=== PATIENT | female | born 1955 | race Caucasian/White ===

== ENCOUNTER 2020-04-12 19:59 | Observation (INO) ==
[2020-04-12] MEDS ORDERED: IOPAMIDOL 100 ML BOTTLE IV ONE (20:00)
[2020-04-12] MEDS ORDERED: LACTATED RINGERS 1,000 ML IV SCH (20:15)
--- NOTE | 2020-04-12 20:19 | Emergency Department Note ---
Neuro HPI - General Chief Complaint: Stroke Symptoms Stated Complaint: nuero symptoms Time Seen by Provider: 04/12/20 20:05 Source: patient, family Mode of arrival: ambulatory - History of Present Illness HPI Narrative: Short time ago developed tingling and numbness to the right side of face as well as some paresthesias to the right arm. She was sitting at the table with her h usband when she noticed blurriness on the right eye and also started developing some tingling to the right side of face which proceeded to go up to the ear and then down towards the right arm. She denies any right arm weakness, denies any leg weakness, but she had loss of depth perception. Was brought in immediately by private vehicle. Started 40 minutes prior to arrival. Did have slight press ure headache earlier, a little bit of nausea but no vomiting. No chest pain, shortness of breath. The. Positive history of cardiac disease on her brother's side, parents side - Related Data Home Medications: Home Medications Medication Instructions Recorded Confirmed magnesium oxide 400 mg PO QDAY cap 12/06/17 04/12/20 cholecalciferol (vitamin D3) 25 2,000 unit PO QDAY cap 03/14/18 04/12/20 mcg (1,000 unit) capsule Previous Rx's Medication Instructions Recorded fluoxetine 20 mg capsule 20 mg PO QDAY #90 cap 08/03/19 losartan 100 mg tablet 50 mg PO QDAY #45 tab 08/03/19 metformin 500 mg tablet See Rx Instructions PO .COMPLEX 90 09/09/19 Days #450 tab Allergies/Adverse Reactions: Allergies Allergy/AdvReac Type Severity Reaction Status Date / Time Verapamil [From Isoptin] AdvReac Mild Headache Verified 04/12/20 20:04 Review of Systems All systems ED: reviewed and negative except as stated. Constitutional: Denies: fever, chills Eyes: Denies: eye pain ENT ED: Denies: throat pain Cardiovascular: Denies: chest pain, palpitations Respiratory: Denies: shortness of breath, cough, wheezes, phlegm Gastrointestinal: Denies: abdominal pain, nausea, vomiting Genitourinary: Denies: dysuria, urgency Musculoskeletal: Denies: back pain Neurological: Reports: headache, paresthesias. Denies: confusion Endocrine: Denies: fatigue Past Medical History - Past Medical History [facility] Narrative: All Active Problems (Last Reviewed 07/08/18 @ 15:51 by Blank Ellis MD) Thumb pain (Acute) Shoulder fracture, right (Chronic) S/P LASIK surgery of both eyes (Chronic) Patella fracture (Chronic) Shingles (Chronic) UTI (urinary tract infection) (Chronic) Pes anserine bursitis (Acute) Arthralgia (Chronic) Pain in both feet (Chronic) Encounter for long-term current use of other high-risk medications (Chronic) Systemic Lupus Erythematosus (Chronic) Cough (Chronic) Rash (Chronic) Long-term use of immunosuppressant medication (Chronic) Encounter for long-term (current) use of other high-risk medications (Acute) Disorder of connective tissue (Chronic) Antinuclear factor positive (Chronic) Arthralgia of multiple joints (Acute) History of (Chronic) History of cholecystectomy (Chronic) History of mammogram (Chronic) History of Papanicolaou smear of cervix (Chronic) History of colonoscopy (Chronic ~1994) IBS (irritable bowel syndrome) (Chronic) No significant past surgical history (Chronic) Thyroid nodule (Chronic) Hypothyroid (Chronic) Arthralgia (Chronic) Postmenopausal status (Chronic) Past Surgical History (Last Reviewed 07/08/18 @ 15:51 by Blank Ellis MD) S/P LASIK surgery of both eyes (Chronic) History of (Chronic) History of cholecystectomy (Chronic) History of colonoscopy (Chronic ~1994) No significant past surgical history (Chronic) S/P knee surgery (Acute) Source: old records reviewed, nursing notes reviewed Medical history: Reports: atrial fibrillation, hypertension 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 Absent: co njunctival injection, periorbital swelling, periorbital tenderness ENT: Present: normal exam, normal oropharynx, mucous membranes moist, TM's normal bilaterally Neck: Present: normal inspection, full ROM, trachea midline Chest: Present: normal inspection, symmetric chest wall rise Respiratory: Present: normal lung sounds bilaterally. Absent: respiratory distress Cardiovascular: Present: regular rate, normal rhythm, normal heart sounds Abdominal: Present: soft, normal bowel sounds. Absent: distention, tenderness, guarding Extremities: Present: normal inspection, full ROM. Absent: tenderness, pedal edema, pretibial edema Back: Absent: CVA tenderness (R), CVA tenderness (L), paraspinal tenderness, vertebral tenderness Neurological: Present: alert, oriented X3, CN II-XII intact Psychiatric: Present: normal affect, normal mood, depressed. Absent: flat affect Skin: Present: warm, dry, normal color Course - Reevaluation(s) Reevaluation #1: Spoke with the stroke neurology team out of Dr. Ayla Soliz and he recommended aspirin 325 as well as Plavix 75, stroke workup in the hospital. Aspirin and Plavix. Provided her head CT is normal. I do not see any acute hemorrhage. At this time and she may have some calcifications of the posterior cerebral vein, final reading is still pending at this time. Reevaluation #2: I spoke with Dr. Peng regarding hospital admission. The. Initial consultation was with Dr. Aguila, [facility] neurology team who did recommend observation and in-hospital workup for TIA/stroke including echocardiogram and MR imaging. We did order CT angiogram for Mrs. Tejada and if these studies are negative for acute clot, we will be able to watch her here in the hospital and work her up for stroke/TIA symptoms. The. Patient was given aspirin and Plavix given that her head CT was negative and this was per recommendations from neurology. Reevaluation #3: Patient admitted to this facility after a negative CTA of head and neck. Her neuro checks remained stable. She did not develop any further deficits. She was monitored closely. Blood pressure remained between 160 and 170 systolic. She was given aspirin and Plavix. Vital Signs Temperature 97.1 F 04/12/20 20:00 Pulse Rate 80 04/12/20 20:00 Respiratory Rate 18 04/12/20 20:00 Blood Pressure 213/101 04/12/20 20:00 Pulse Oximetry (%) 95 04/12/20 20:00 Temperature 97.2 F 04/13/20 04:00 Pulse Rate 72 04/13/20 04:00 Respiratory Rate 20 04/13/20 04:00 Blood Pressure 159/87 04/13/20 05:00 Pulse Oximetry (%) 97 04/13/20 04:00 Neuro Symptoms/Deficit - MDM Narrative Medical decision making narrative: Impression is TIA - Lab Data Lab results reviewed: Yes I reviewed the patient's lab results. Result diagrams: 04/12/20 20:15 04/12/20 20:15 Lab Results 04/12/20 04/12/20 04/12/20 Range/Units 20:15 20:15 20:15 WBC 5.6 (4.50-11.00) K/mcL RBC 4.48 (3.59-5.38) M/mcL Hgb 12.7 (11.2-15.7) g/dL Hct 37.9 (34.1-44.9) % POC Hct 37.0 (36.0-48.0) % MCV 84.6 (80.0-100.0) fL MCH 28.3 (26.0-34.0) pg MCHC 33.5 (31.0-36.0) g/dL RDW 13.0 (11.5-14.5) % Plt Count 169 (140-440) K/mcL MPV 10.2 (7.4-10.4) fL Gran % 47.2 (38.0-78.0) % Lymph % (Auto) 41.2 (15.5-49.0) % [place] % (Auto) 8.0 (1.0-12.0) % Eos % (Auto) 2.7 (0.0-7.0) % Baso % (Auto) 0.9 (0.0-2.0) % Gran # 2.65 (1.80-8.00) K/mcL Lymph # (Auto) 2.31 (1.50-4.80) K/mcL [place] # (Auto) 0.45 (0.10-0.90) K/mcL Eos # (Auto) 0.15 (0.00-0.70) K/mcL Baso # (Auto) 0.05 (0.00-0.30) K/mcL POC PT 11.4 L (11.9-14.5) sec POC INR 1.0 (0.9-1.2) APTT 31 (20-37) sec POC Sodium 136 (133-145) mmol/L Sodium 136 (133-145) mmol/L POC Potassium 3.9 (3.3-5.1) mmol/L Potassium 3.9 (3.3-5.1) mmol/L POC Chloride 97 (96-108) mmol/L Chloride 96 (96-108) mmol/L Carbon Dioxide 25 (22-30) mmol/L POC Total CO2 27 (22-30) mmol/L Anion Gap 15.0 (8-16) POC BUN 16 (8-23) mg/dl BUN 14 (8-23) mg/dl Creatinine 0.7 (0.6-1.1) mg/dl POC Creatinine 0.7 (0.6-1.1) mg/dl GFR Calculation 91 Glucose 246 H (70-105) mg/dL POC Glucose 246 H (70-105) mg/dL Hemoglobin A1c (4.0-6.0) % HGB Estim Average Glucose mg/dL Calcium 9.7 (8.6-10.4) mg/dl POC WB Ioniz Calcium 1.10 L (1.16-1.32) mmol/L Total Bilirubin 0.3 (0.0-1.0) mg/dL AST 29 (0-37) U/l ALT 38 (0-40) U/l Alkaline Phosphatase 63 (39-117) U/L Troponin T (0-0.03) ng/ml Total Protein 7.3 (5.9-8.4) gm/dL Albumin 4.6 (3.2-5.2) gm/dL Globulin 2.7 (2.2-3.7) gm/dL Albumin/Globulin Ratio 1.7 (1.0-2.3) Urine Color Urine Appearance Urine pH (5.0-9.0) Ur Specific [place] (1.000-1.035) Urine Protein (NEG) mg/dL Urine Glucose (UA) (NEG) mg/dL Urine Ketones (NEG) mg/dL Urine Occult Blood (<0.03) mg/dL Urine Nitrate (NEG) Urine Bilirubin (NEG) mg/dL Urine Urobilinogen (NEG) mg/dL Ur Leukocyte Esterase (NEG) /uL Urine RBC (0-1) /hpf Urine WBC (0-4) /hpf Ur Squamous Epith Cells (0-4) /hpf Ur Transition Epith Cell (0-2) /hpf Urine Bacteria (0) /hpf Ur Culture Indicated? 04/12/20 04/12/20 04/12/20 Range/Units 20:15 20:15 22:45 WBC (4.50-11.00) K/mcL RBC (3.59-5.38) M/mcL Hgb (11.2-15.7) g/dL Hct (34.1-44.9) % POC Hct (36.0-48.0) % MCV (80.0-100.0) fL MCH (26.0-34.0) pg MCHC (31.0-36.0) g/dL RDW (11.5-14.5) % Plt Count (140-440) K/mcL MPV (7.4-10.4) fL Gran % (38.0-78.0) % Lymph % (Auto) (15.5-49.0) % [place] % (Auto) (1.0-12.0) % Eos % (Auto) (0.0-7.0) % Baso % (Auto) (0.0-2.0) % Gran # (1.80-8.00) K/mcL Lymph # (Auto) (1.50-4.80) K/mcL [place] # (Auto) (0.10-0.90) K/mcL Eos # (Auto) (0.00-0.70) K/mcL Baso # (Auto) (0.00-0.30) K/mcL POC PT (11.9-14.5) sec POC INR (0.9-1.2) APTT (20-37) sec POC Sodium (133-145) mmol/L Sodium (133-145) mmol/L POC Potassium (3.3-5.1) mmol/L Potassium (3.3-5.1) mmol/L POC Chloride (96-108) mmol/L Chloride (96-108) mmol/L Carbon Dioxide (22-30) mmol/L POC Total CO2 (22-30) mmol/L Anion Gap (8-16) POC BUN (8-23) mg/dl BUN (8-23) mg/dl Creatinine (0.6-1.1) mg/dl POC Creatinine (0.6-1.1) mg/dl GFR Calculation Glucose (70-105) mg/dL POC Glucose (70-105) mg/dL Hemoglobin A1c 7.0 H (4.0-6.0) % HGB Estim Average Glucose 154 mg/dL Calcium (8.6-10.4) mg/dl POC WB Ioniz Calcium (1.16-1.32) mmol/L Total Bilirubin (0.0-1.0) mg/dL AST (0-37) U/l ALT (0-40) U/l Alkaline Phosphatase (39-117) U/L Troponin T < 0.01 (0-0.03) ng/ml Total Protein (5.9-8.4) gm/dL Albumin (3.2-5.2) gm/dL Globulin (2.2-3.7) gm/dL Albumin/Globulin Ratio (1.0-2.3) Urine Color Colorless Urine Appearance Clear Urine pH 7.0 (5.0-9.0) Ur Specific [place] 1.015 (1.000-1.035) Urine Protein 30 A (NEG) mg/dL Urine Glucose (UA) 150 A (NEG) mg/dL Urine Ketones Neg (NEG) mg/dL Urine Occult Blood Neg (<0.03) mg/dL Urine Nitrate Neg (NEG) Urine Bilirubin Neg (NEG) mg/dL Urine Urobilinogen Neg (NEG) mg/dL Ur Leukocyte Esterase 75 A (NEG) /uL Urine RBC 1 (0-1) /hpf Urine WBC 9 H (0-4) /hpf Ur Squamous Epith Cells 0 (0-4) /hpf Ur Transition Epith Cell < 1 (0-2) /hpf Urine Bacteria 0 (0) /hpf Ur Culture Indicated? No - Radiology Data Radiology results reviewed: Yes I reviewed the patient's radiology results. - EKG Data EKG attestation: Yes I reviewed and interpreted this EKG., Yes There are no EKG findings of acute coronary syndrome EKG shows normal: sinus rhythm Disposition Pt seen by MACHINE PECAN PICKER/PA only: No Clinical Impression: TIA (transient ischemic attack) Disposition: Xfer As Outpt/Obs ([facility]) Condition: Good
[2020-04-12 20:22] LABS: POC Pro Time 11.4 sec (11.9-14.5)
[2020-04-12 20:23] LABS: POC Blood Urea Nitrogen 16 mg/dl (8-23); POC CO2 27 mmol/L (22-30); POC Chloride 97 mmol/L (96-108); POC Creatinine 0.7 mg/dl (0.6-1.1); POC Glucose, Random 246 mg/dL (70-105); POC Potassium 3.9 mmol/L (3.3-5.1); POC Sodium 136 mmol/L (133-145)
[2020-04-12] MEDS ORDERED: LABETALOL 5 MG/ML ML IV ONE (20:27)
--- NOTE | 2020-04-12 20:27 | Cat Scan Report ---
INDICATION: Neuro Deficit/acute stroke COMPARISON: None. TECHNIQUE: Axial noncontrast-enhanced images through the brain. Sagittally and coronally reformatted images. FINDINGS: Cerebral hemispheres:Negative. No intra-axial abnormality. No intra-axial hematoma. No localized mass effect. Brain volume is within normal limits. No hydrocephalus Brainstem and cerebellum:No intra-axial abnormality Extra-axial:No acute hemorrhage. No subdural or epidural hematoma. No subarachnoid hemorrhage. Basilar cisterns are normal Calvarial:No calvarial fracture. No lytic lesion Temporal bones are negative. No destructive lesions Soft tissue:Orbits and visualized facial soft tissues are grossly normal. IMPRESSION: Negative noncontrast enhanced brain CT scan. No acute abnormality The exam was performed using radiation dose optimization techniques including, but not limited to, automated exposure control, adjustment of the mA and/or kV according to patient size and use of iterative reconstruction technique. Interpreted and Authenticated by: Av Pagan 04/12/20
[2020-04-12 20:40] LABS: Basophils # (Auto) 0.05 K/mcL (0.00-0.30); Basophils % (Auto) 0.9 % (0.0-2.0); Eosinophils # (Auto) 0.15 K/mcL (0.00-0.70); Eosinophils % (Auto) 2.7 % (0.0-7.0); Granulocytes % (Auto) 47.2 % (38.0-78.0); Hematocrit 37.9 % (34.1-44.9); Hemoglobin 12.7 g/dL (11.2-15.7); Lymphocytes # (Auto) 2.31 K/mcL (1.50-4.80); Lymphocytes % (Auto) 41.2 % (15.5-49.0); Mean Cell Volume 84.6 fL (80.0-100.0); Mean Corpuscular HGB Conc 33.5 g/dL (31.0-36.0); Mean Platelet Volume 10.2 fL (7.4-10.4); Monocytes # (Auto) 0.45 K/mcL (0.10-0.90); Platelet Count 169 K/mcL (140-440); RBC 4.48 M/mcL (3.59-5.38); WBC 5.6 K/mcL (4.50-11.00)
[2020-04-12] MEDS ORDERED: ASPIRIN 81 MG TAB.CHEW CHEWED ONE (20:44)
[2020-04-12] MEDS ORDERED: CLOPIDOGREL 75 MG TABLET PO ONE (20:44)
[2020-04-12 21:00] LABS: ALT/SGPT 38 U/l (0-40); AST/SGOT 29 U/l (0-37); Albumin 4.6 gm/dL (3.2-5.2); Albumin/Globulin Ratio 1.7 (1.0-2.3); Alkaline Phosphatase 63 U/L (39-117); Bilirubin,Total 0.3 mg/dL (0.0-1.0); Blood Urea Nitrogen 14 mg/dl (8-23); Calcium 9.7 mg/dl (8.6-10.4); Carbon Dioxide 25 mmol/L (22-30); Chloride 96 mmol/L (96-108); Globulin 2.7 gm/dL (2.2-3.7); Glomerular Filtration Rate 91; Glucose 246 mg/dL (70-105)
--- NOTE | 2020-04-12 22:29 | Internal Med History&Physical ---
Medical - H&P: HPI Patient information: Note initiated : 04/12/20 at 10:29 pm Service Date, if different from initiated Date: [] Patient: Milady Tejada 65 y/o F admitted on for nuero symptoms. Chief Complaint: [] Chief complaint: rt sided numbness, diplopia History of present illness: Ms. Tejada is a 65 year old F history of hypertension/anxiety/DM type II and obesity who presents to the ER with sudden onset vision changes while she was sitting with her . Symptoms were shortly followed by right-sided facial numbness and tingling with sensation extending to the right arm. She denies associated thunderclap headache/tearing neck pain, loss of consciousness vertigo. Patient denies associated swallowing or speech difficulty. She further denied neck stiffness/nausea or vomiting. She presented within 1 hr of onset to the ER for evaluation Initial work-up was negative including CT head/CTA head neck, Symptoms rapidly resolved in the ER, however remains hypertensive at 220 requiring antihypertensive. F Telestroke consulted and recommended dual antiplatelets for 21 days. Patient was started on aspirin Plavix. Hospital service was consulted for continuation of stroke work-up following Tele neurology recommendations At the time evaluation patient is accompanied with her . She denies prior similar episodes. She endorses history as above. She denies smo johnny/changes in medications/prior history of CVA/bleeding or clotting disorder. Review of systems 10 point review system was performed and is negative except for ones discussed above Medical - H&P: PMH Medical history: Encounter for Health Maintenance Examination in Adult (Chronic) Proteinuria (Chronic 10/09/13) see 10/2013 dictation Osteopenia (Chronic 11/05/14) Osteoarthritis (Chronic) 10/12-Predominantly in right knee, OP 10/12-Dr. Kerr Hypertension, essential (Chronic) COZAAR- monitors home BP's Hyperlipidemia (Chronic) -Elevated cholesterol -continues Lipitor Diabetes mellitus, type II (Chronic) NIDDM. Eye exam through Dr. Santos. No history of neuropathy and foot care is quite good. Depression (Chronic) --currently on Prozac. Personal history of colonic polyps (Chronic 04/07/08) 04/07/08-Dr. Chu-No Polyps-Normal colon. 10 year sequencing. Chest pain (Chronic) 10/2004-Chest discomfort/burning. Evaluated with [facility] 10/30/04-normal exam. Back pain (Chronic) 2005-H/O low back pain, MRI 08/09. Referred to Dr. Perez with repeat MRI and physical therapy. 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 smoking status: Never smoker alcohol intake frequency: does not drink Reproductive History Menstrual Menopause type: natural Total pregnancies: 0 Family history: reviewed and not pertinent Pertinent family history: Mother CHF, HTN Brother premature CAD Father HTN Social history: to [employer]atan works at [employer] Smoking status: Never smoker Medical - H&P: Meds Home Medications Medication Instructions Recorded Confirmed Type magnesium oxide 400 mg PO QDAY cap 12/06/17 04/12/20 History cholecalciferol (vitamin D3) 25 2,000 unit PO QDAY cap 03/14/18 04/12/20 History mcg (1,000 unit) capsule fluoxetine 20 mg capsule 20 mg PO QDAY #90 cap 08/03/19 04/12/20 Rx losartan 100 mg tablet 50 mg PO QDAY #45 tab 08/03/19 04/12/20 Rx metformin 500 mg tablet See Rx Instructions PO .COMPLEX 90 09/09/19 04/12/20 Rx Days #450 tab Allergies Allergy/AdvReac Type Severity Reaction Status Date / Time Verapamil [From Isoptin] AdvReac Mild Headache Verified 04/12/20 20:04 Medical - H&P: Exam - Constitutional Vitals: Temp Pulse Resp BP Pulse Ox 97.1 F 84 20 174/91 92 04/12/20 20:00 04/12/20 22:16 04/12/20 22:16 04/12/20 22:16 04/12/20 22:16 General appearance: morbidly obese Exam: Head normocephalic Oral cavity dry No ear nose discharge Eye movement symmetrical Neck no lymphadenopathy S1-S2 regular rhythm no murmur Nonlabored breathing Abdomen soft nontender nondistended Lower extremity no cyanosis clubbing no joint swelling Skin no suspicious lesion Psych alert cooperative Neuro nonfocal with normal higher function exam Medical - H&P: Reslt - Labs CBC & Chem 7: 04/13/20 05:00 04/13/20 05:00 Labs: Short CBC 04/12/20 Range/Units 20:15 WBC 5.6 (4.50-11.00) K/mcL Hgb 12.7 (11.2-15.7) g/dL Hct 37.9 (34.1-44.9) % Plt Count 169 (140-440) K/mcL BMP 04/12/20 20:15 Sodium 136 Potassium 3.9 Chloride 96 Carbon Dioxide 25 BUN 14 Creatinine 0.7 Glucose 246 H Calcium 9.7 Cardiac Enzymes 04/12/20 Range/Units 20:15 Troponin T < 0.01 (0-0.03) ng/ml Liver Function 04/12/20 Range/Units 20:15 Total Bilirubin 0.3 (0.0-1.0) mg/dL AST 29 (0-37) U/l ALT 38 (0-40) U/l Alkaline Phosphatase 63 (39-117) U/L Albumin 4.6 (3.2-5.2) gm/dL Medical - H&P: A/P (1) TIA (transient ischemic attack) Current visit: Yes Status: Acute * TIA-stroke neurologist consulted. Patient started on aspirin/Plavix. CTA/CT head unremarkable. MRI/echocardiogram ordered. Start statin. Continue te lemetry monitoring to rule out arrhythmias. (Patient has a history of atrial fibrillation and status post ablation )neuroimaging/ Neurochecks, Tele, MRI. ECHO, ASA/Plavix and statin. * HTN-continue home medication including losartan. Use as needed hydralazine to keep systolics between 1 60-1 80 * History of atrial fibrillation status post ablation follows up with cardiology at [facility] * DMII-continue sliding-scale insulin/CC diet * Leg cramps-continue magnesium home dose * Full code * Prophylaxis heparin PLAN * Obs admit * MRI/echocardiogram * Stroke work-up * Pre-existing medical condition management on home meds as above * PT OT
[2020-04-12] MEDS ORDERED: INSULIN REGULAR, HUMAN 1 UNIT/0.01 ML UNIT SQ ONE (22:41)
[2020-04-12] MEDS ORDERED: MELATONIN 3 MG TABLET PO PRN (23:17)
[2020-04-12] MEDS ORDERED: METOPROLOL TARTRATE 5 MG/5 ML VIAL IV PRN (23:17)
[2020-04-12] MEDS ORDERED: POLYETHYLENE GLYCOL 3350 17 GM PACKET PO PRN (23:17)
[2020-04-12] MEDS ORDERED: hydrALAZINE 20 MG/ML VIAL IV PRN (23:17)
[2020-04-12] MEDS ORDERED: DEXTROSE 50% 50 ML VIAL IV PRN (23:17)
[2020-04-12] MEDS ORDERED: POTASSIUM CHLORIDE 20 MEQ PACKET PO PRN (23:17)
[2020-04-12] MEDS ORDERED: DEXTROSE 31 GM ORAL.SUSP PO PRN (23:17)
[2020-04-12] MEDS ORDERED: ONDANSETRON 4 MG/2 ML VIAL IV PRN (23:17)
[2020-04-12] MEDS ORDERED: BISACODYL 10 MG SUPP.RECT PR PRN (23:17)
[2020-04-12] MEDS ORDERED: ACETAMINOPHEN 650 MG/65 ML BOTTLE IV PRN (23:17)
[2020-04-12] MEDS ORDERED: ACETAMINOPHEN 325 MG TABLET PO PRN (23:17)
[2020-04-12] MEDS ORDERED: MAGNESIUM SULFATE 2 GM/50 ML BAG IV PRN (23:17)
[2020-04-12] MEDS ORDERED: ONDANSETRON 4 MG ODT TABLET SL PRN (23:17)
[2020-04-12] MEDS ORDERED: hydrALAZINE 20 MG/ML VIAL ONE (23:24)
[2020-04-12] MEDS: 0.9 % SODIUM CHLORIDE 10 ML SYRINGE IV SCH (23:25)
[2020-04-12 23:32] LABS: Appearance,Urine CLEAR; Bacteria,Urine 0 /hpf (0); Bilirubin,Urine NEG (NEG); Color,Urine COLORLESS; Culture Indicated,Urine NO; Glucose,Urine (UA) 150 mg/dL (NEG); Ketones,Urine NEG (NEG); Leukocyte Esterase,Urine 75 /uL (NEG); Nitrate,Urine NEG (NEG); Protein,Urine 30 mg/dL (NEG); Specific Gravity,Urine 1.015 (1.000-1.035); Urine Blood NEG mg/dL (<0.03); Urine RBC 1 /hpf (0-1); Urine Squamous Epithelial Cell 0 /hpf (0-4); Urine Transitional Epi Cells < 1 /hpf (0-2); Urine WBC 9 /hpf (0-4); Urobilinogen,Urine NEG (NEG)
[2020-04-13] MEDS: 0.9 % SODIUM CHLORIDE 10 ML SYRINGE IV SCH ×2 (05:11→15:56)
[2020-04-13 07:02] LABS: Hematocrit 36.6 % (34.1-44.9); Hemoglobin 12.3 g/dL (11.2-15.7); Mean Cell Volume 85.7 fL (80.0-100.0); Mean Corpuscular HGB Conc 33.6 g/dL (31.0-36.0); Mean Platelet Volume 10.6 fL (7.4-10.4); Platelet Count 169 K/mcL (140-440); RBC 4.27 M/mcL (3.59-5.38); Red Cell Distribution Width 13.2 % (11.5-14.5); WBC 5.9 K/mcL (4.50-11.00)
[2020-04-13] MEDS ORDERED: INSULIN REGULAR, HUMAN 1 UNIT/0.01 ML UNIT SQ SCH (07:30)
[2020-04-13 07:38] LABS: ALT/SGPT 34 U/l (0-40); AST/SGOT 26 U/l (0-37); Albumin 4.2 gm/dL (3.2-5.2); Albumin/Globulin Ratio 1.6 (1.0-2.3); Alkaline Phosphatase 58 U/L (39-117); Bilirubin,Direct < 0.2 mg/dL (0.0-0.3); Bilirubin,Total 0.3 mg/dL (0.0-1.0); Blood Urea Nitrogen 12 mg/dl (8-23); Calcium 9.5 mg/dl (8.6-10.4); Carbon Dioxide 25 mmol/L (22-30); Chloride 98 mmol/L (96-108); Globulin 2.6 gm/dL (2.2-3.7); Glomerular Filtration Rate 96; Glucose 139 mg/dL (70-105); Lactate Dehydrogenase 153 U/L (94-250); Phosphorous 4.5 mg/dL (2.7-4.5); Triglycerides 278 mg/dl (<150); Uric Acid 5.7 mg/dL (2.5-8.0)
[2020-04-13 07:57] LABS: Eosinophils % (Manual) 1 % (0-7); Lymphocytes % 40 % (15-49); Monocytes % (Manual) 8 % (1-12); Myelocytes % 1 % (0-0); Platelet Estimate NORMAL (NORMAL); RBC Morphology NORMAL (NORMAL); Segmented Neutrophils % 50 % (38-78)
[2020-04-13] MEDS: INSULIN LISPRO 1 UNIT/0.01 ML UNIT SQ SCH ×2 (08:29→12:23)
[2020-04-13] MEDS ORDERED: LORazepam 0.5 MG TABLET PO ONE (08:42)
[2020-04-13] MEDS ORDERED: HEPARIN 5,000 UNIT/ML VIAL SQ SCH (09:00)
[2020-04-13] MEDS ORDERED: MULTIVIT,THER IRON,CA,FA & MIN 1 TABLET PO SCH (09:00)
[2020-04-13] MEDS ORDERED: VITAMIN D3 1,000 UNIT TABLET PO SCH (09:00)
[2020-04-13] MEDS ORDERED: LOSARTAN 50 MG TABLET PO SCH (09:00)
[2020-04-13] MEDS ORDERED: CLOPIDOGREL 75 MG TABLET PO SCH (09:00)
[2020-04-13] MEDS ORDERED: MAGNESIUM OXIDE 400 MG TABLET PO SCH (09:00)
[2020-04-13] MEDS ORDERED: ASPIRIN 81 MG TAB.CHEW CHEWED SCH (09:00)
[2020-04-13] MEDS ORDERED: sitaGLIPtin 100 MG TABLET PO SCH (09:00)
[2020-04-13] MEDS ORDERED: DOCUSATE SODIUM 100 MG CAPSULE PO SCH (09:00)
[2020-04-13] MEDS ORDERED: CYANOCOBALAMIN (VITAMIN B-12) 500 MCG TABLET PO SCH (09:00)
[2020-04-13] MEDS ORDERED: THIAMINE 100 MG TABLET PO SCH (09:00)
[2020-04-13] MEDS ORDERED: FLUoxetine HCL 20 MG CAPSULE PO SCH (09:00)
--- NOTE | 2020-04-13 09:01 | Cat Scan Report ---
INDICATION: stroke COMPARISON: Noncontrast enhanced brain CT scan dated 04/12/2020 TECHNIQUE: Axial images were obtained through the upper chest, neck, and head during arterial phase. MIP and CPR reformatted images. 80ml Isovue 370 injected intravenously. FINDINGS: AORTIC ARCH: Minimal calcified atherosclerotic plaque. Origins of the left subclavian artery, left vertebral artery, left common carotid artery, innominate artery, right common carotid artery, right subclavian artery, right vertebral artery are negative. No origin stenosis. CAROTID ARTERIES:Right: Right common carotid artery is negative. No stenosis or occlusion. Calcified plaque at the origin of the right internal carotid artery. No significant stenosis or evidence for ulceration. Right internal carotid artery is otherwise negative. No stenosis or occlusion. No fibromuscular dysplasia or dissection. Left: Left common carotid artery is negative. No stenosis or occlusion Calcified plaque at the origin of left internal carotid artery. No significant stenosis. No evidence for ulceration. Left internal carotid artery is otherwise negative. There is no stenosis or occlusion. No dissection or evidence for fibromuscular dysplasia VERTEBRAL ARTERIES:Focal hemodynamically significant stenosis of the left vertebral artery at the C3 level. This is within the foramen transversarium and this stenosis is probably related to degenerative facet arthropathy. Short segment dissection is possible. Left vertebral artery is patent. There is no occlusion. No detectable intraluminal thrombus. Vertebral arteries are codominant. Right vertebral artery is negative. [place]:[Petrous segments of the internal carotid arteries are patent and negative. There is calcified plaque within the cavernous segments of both internal carotid arteries. Definite hemodynamically significant stenosis is not identified. These vessels remain patent. No cavernous carotid aneurysm. Supraclinoid internal carotid arteries are negative. M1 segments of the middle cerebral arteries and A1 segments of the anterior cerebral arteries are negative. Intracranial vertebral arteries and basilar artery are negative. Posterior cerebral arteries and superior cerebellar arteries are negative] INTRACRANIAL CIRCULATION:No intracranial branch occlusion. No arteriovenous malformation or aneurysm No dural sinus occlusion UPPER CHEST:No pulmonary parenchymal mass or focal infiltrate. Superior mediastinum is negative. There is extensive coronary artery calcification NECK:No solid or cystic soft tissue mass. No pathologic lymphadenopathy. Relatively mild multilevel degenerative disc disease in the cervical spine moderate degenerative disc disease at C5-6. There is multilevel degenerative facet arthropathy. This causes focal narrowing of the left vertebral artery at the C3 level (see above). BRAIN:No acute intracranial hemorrhage. No focal attenuation abnormalities or pathologic contrast enhancement. Examination was initially interpreted by [facility] IMPRESSION: 1. Atherosclerotic calcification of proximal internal carotid artery bilaterally. No significant soft plaque or thrombus. No ulceration. No stenosis. 2. Extensive calcified plaque in the cavernous segments of both internal carotid arteries. Definite stenosis is not identified 3. Focal short segment hemodynamically significant stenosis of the left vertebral artery at the C3 level. This appears to be secondary to impingement from facet arthropathy. Focal dissection is possible 4. Calcified coronary artery disease 5. No intracranial branch occlusion. No intracranial aneurysm or arteriovenous malformation The exam was performed using radiation dose optimization techniques including, but not limited to, automated exposure control, adjustment of the mA and/or kV according to patient size and use of iterative reconstruction technique. Interpreted and Authenticated by: Av Pagan 04/13/20
--- NOTE | 2020-04-13 12:12 | Magnetic Resonance Report ---
INDICATION: Possible stroke. Weakness. COMPARISON: Previous CT scan and CTA dated 04/12/2020 TECHNIQUE: Sagittal T1 FLAIR images. Axial DWI, T1 FLAIR, T2 FLAIR, T2, GRE. Coronal T2 FSE. FINDINGS: Cerebral hemispheres:No restricted diffusion. No acute infarction. No susceptibility. No hemorrhagic abnormality. There is white matter abnormality with multiple foci of increased signal intensity in the white matter of both cerebral hemispheres. Findings are both subcortical and periventricular. Findings are nonspecific but advanced for age. This is probably secondary to small vessel ischemic change. Vasculitis or ADEM are possible. Distribution is atypical for demyelinating disease. No well-defined focal intra-axial signal abnormality or localized mass effect. Brain volume is within normal limits for age. No hydrocephalus. Brain stem and cerebellum:No intra-axial abnormalities. Extra-axial:Normal flow void within vessels at the base of the brain. No subdural or epidural hematoma. No detectable subarachnoid hemorrhage Cavernous sinuses and basilar cisterns are normal. Skull:No calvarial lesions. No lytic lesion. No detectable fracture. Temporal bones:Mastoid sinuses are normal. No fluid or soft tissue intensity within either middle ear. Inner ear structures are normal Orbits, facial soft tissues:Globes are normal. No intraorbital abnormality. Facial soft tissues are negative Paranasal sinuses:Maxillary, frontal, ethmoid sinuses are negative. Sphenoid sinuses are negative. No mucosal thickening. No air-fluid levels. No discrete soft tissue mass IMPRESSION: 1. White matter abnormality, advanced for age. Findings may be due to small vessel ischemic change 2. No focal intra-axial abnormality. No localized mass effect. No restricted diffusion or evidence for acute infarction Interpreted and Authenticated by: Av Pagan 04/13/20
--- NOTE | 2020-04-13 14:48 | Discharge Summary ---
Medical - DS: Prov Patient information: Note initiated : 04/13/20 at 2:46 pm Service Date, if different from initiated Date: [] Patient: Milady Tejada 65 y/o F admitted on 04/12/20 for nuero symptoms. Chief Complaint: [] Date of admission: 04/12/20 23:07 Discharge date: 04/13/20 Primary care physician: Zafar Cuellar M.D., F.A.A.F.P. Consults: 04/12/20 Consult to Physician [CONS] Stat Comment: Consulting Provider: Tomer Smith Reason For Exam: Physician to Consult Medical - DS: Meds - Discharge Medications Prescriptions: Aspirin 81 mg CHEWED DAILY #30 tab.chew Transmission Status: Pending to [facility] #[id number] Atorvastatin [Lipitor] 40 mg PO HS #30 tab Transmission Status: Pending to [facility] #[id number] Clopidogrel Bisulfate [Plavix] 75 mg PO DAILY #30 tab Transmission Status: Pending to [facility] #[id number] Active and Home Medications: Home Medications magnesium oxide 400 mg PO QDAY cap 12/06/17 [History Confirmed 04/12/20 Last Taken 05/22/18] cholecalciferol (vitamin D3) 25 mcg (1,000 unit) capsule 2,000 unit PO QDAY cap 03/14/18 [History Confirmed 04/12/20 Last Taken 05/22/18] fluoxetine 20 mg capsule 20 mg PO QDAY #90 cap 08/03/19 [Rx Confirmed 04/12/20 Last Taken Unknown] losartan 100 mg tablet 50 mg PO QDAY #45 tab 08/03/19 [Rx Confirmed 04/12/20 Last Taken Unknown] metformin 500 mg tablet See Rx Instructions PO .COMPLEX 90 Days #450 tab 09/09/19 [Rx Confirmed 04/12/20 Last Taken Unknown] Aspirin 81 mg CHEWED DAILY #30 tab.chew 04/13/20 [Rx Last Taken Unknown] Atorvastatin [Lipitor] 40 mg PO HS #30 tab 04/13/20 [Rx Last Taken Unknown] Clopidogrel Bisulfate [Plavix] 75 mg PO DAILY #30 tab 04/13/20 [Rx Last Taken Unknown] Medical - DS: Hosp Hospital Course: Discharge diagnosis * TIA-stroke neurologist consulted. Symptoms fully resolved. Patient continuing on aspirin/Plavix/statin. MRI brain/CTA head neck/CT head unrem arkable. No telemetry events. * HTN-remained stable on home dose losartan. * History of atrial fibrillation status post ablation follows up with cardiology at [facility] * DMII-stable on sliding-scale insulin/CC diet * Leg cramps-remained stable on magnesium home dose Brief hospital course Ms. Tejada is a 65 year old F history of hypertension/anxiety/DM type II and obesity who presents to the ER with sudden onset vision changes while she was sitting with her . Symptoms were shortly followed by right-sided facial numbness and tingling with sensation extending to the right arm. She denies associated thunderclap headache/tearing neck pain, loss of consciousness vertigo. Patient denies associated swallowing or speech difficulty. She further denied neck stiffness/nausea or vomiting. She presented within 1 hr of onset to the ER for evaluation Initial work-up was negative including CT head/CTA head neck, Symptoms rapidly resolved in the ER, however remains hypertensive at 220 requiring antihypertensive. F Telestroke consulted and recommended dual antiplatelets for 21 days. Patient was started on aspirin Plavix. Hospital service was consulted for continuation of stroke work-up following Tele neurology recommendations At the time evaluation patient is accompanied with her . She denies prior similar episodes. She endorses history as above. She denies smoking/changes in medications/prior history of CVA/bleeding or clotting disorder. 04/13-patient clinically improved. Total resolution of neurological symptoms. No overnight events. No telemetry events. Continuing on aspirin/Plavix as per neurology recommendations. MRI brain small vessel ischemic changes but no acute process. Echocardiogram pending. Discharging advised to follow-up with primary care physician in [address] Cuellar and schedule appointment with neurologist Discharge diagnosis: . - Time Spent with Patient Total time spent providing and/or coordinating discharge services: Greater than 30 minutes Medical - DS: Exam - Constitutional Vitals: Vital Signs Temp Pulse Pulse Resp BP BP Pulse Ox 04/13/20 12:58 97.6 F 16 166/89 96 04/13/20 08:07 97.8 F 20 157/85 95 04/13/20 05:00 159/87 04/13/20 04:00 97.2 F 72 20 155/77 97 04/13/20 03:00 123/94 04/13/20 02:00 129/96 04/13/20 01:00 149/80 04/13/20 00:30 158/76 04/13/20 00:00 166/86 04/12/20 23:50 140/80 04/12/20 23:40 160/84 04/12/20 23:13 167/83 04/12/20 23:07 97.2 F 79 20 192/99 95 04/12/20 23:06 97.1 F 80 17 167/86 97 04/12/20 23:01 97.8 F 81 17 167/83 93 04/12/20 23:00 80 17 167/86 97 04/12/20 22:53 82 19 182/88 96 04/12/20 22:50 81 19 96 04/12/20 22:16 84 20 174/91 92 04/12/20 22:01 81 18 163/82 92 04/12/20 21:46 84 19 155/83 90 04/12/20 21:39 83 20 189/84 94 04/12/20 21:16 77 20 163/82 93 04/12/20 21:01 78 20 190/92 93 04/12/20 20:51 81 17 95 04/12/20 20:46 78 21 166/81 92 04/12/20 20:31 21 185/87 04/12/20 20:26 22 199/100 04/12/20 20:15 215/101 04/12/20 20:05 213/101 04/12/20 20:00 97.1 F 80 18 213/101 95 Intake and Output 04/13/20 04/13/20 04/13/20 05:59 13:59 21:59 Intake Total 978 720 Output Total 1350 Balance -372 720 Intake: IV 658 Lactated Ringers 1,000 ml @ 250 658 mls/hr IV .Q4H [facility] Rx#: [id number] Oral 320 720 Output: Void Amount 1350 Other: Meal Lunch Percent of Meal Consumed 100% Feeding Ability Independent Urine Appearance Clear Urine Color Bright Yellow # Voids 1 Medical - DS: Data Labs on day of discharge: Labs from last 24 hours 04/13/20 04/13/20 04/12/20 05:00 05:00 22:45 WBC 5.9 RBC 4.27 Hgb 12.3 Hct 36.6 POC Hct MCV 85.7 MCH 28.8 MCHC 33.6 RDW 13.2 Plt Count 169 MPV 10.6 H Gran % Lymph % (Auto) Clare % (Auto) Eos % (Auto) Baso % (Auto) Gran # Lymph # (Auto) Clare # (Auto) Eos # (Auto) Baso # (Auto) Total Counted 100 Seg Neutrophils % 50 Band Neutrophils % Not Reportable Lymphocytes % 40 Monocytes % (Manual) 8 Eosinophils % (Manual) 1 Myelocytes % 1 H Platelet Estimate Normal RBC Morphology Normal POC PT POC INR APTT POC Sodium Sodium 137 POC Potassium Potassium 3.7 POC Chloride Chloride 98 Carbon Dioxide 25 POC Total CO2 Anion Gap 14.0 POC BUN BUN 12 Creatinine 0.6 POC Creatinine GFR Calculation 96 Glucose 139 H POC Glucose Hemoglobin A1c Estim Average Glucose Uric Acid 5.7 Calcium 9.5 POC WB Ioniz Calcium Phosphorus 4.5 Magnesium 2.0 Total Bilirubin 0.3 Direct Bilirubin < 0.2 GGT 19 AST 26 ALT 34 Alkaline Phosphatase 58 Lactate Dehydrogenase 153 Troponin T Total Protein 6.8 Albumin 4.2 Globulin 2.6 Albumin/Globulin Ratio 1.6 Triglycerides 278 H Urine Color Colorless Urine Appearance Clear Urine pH 7.0 Ur Specific Sisters 1.015 Urine Protein 30 A Urine Glucose (UA) 150 A Urine Ketones Neg Urine Occult Blood Neg Urine Nitrate Neg Urine Bilirubin Neg Urine Urobilinogen Neg Ur Leukocyte Esterase 75 A Urine RBC 1 Urine WBC 9 H Ur Squamous Epith Cells 0 Ur Transition Epith Cell < 1 Urine Bacteria 0 Ur Culture Indicated? No 04/12/20 04/12/20 04/12/20 20:15 20:15 20:15 WBC RBC Hgb Hct POC Hct 37.0 MCV MCH MCHC RDW Plt Count MPV Gran % Lymph % (Auto) Clare % (Auto) Eos % (Auto) Baso % (Auto) Gran # Lymph # (Auto) Clare # (Auto) Eos # (Auto) Baso # (Auto) Total Counted Seg Neutrophils % Band Neutrophils % Lymphocytes % Monocytes % (Manual) Eosinophils % (Manual) Myelocytes % Platelet Estimate RBC Morphology POC PT POC INR APTT POC Sodium 136 Sodium 136 POC Potassium 3.9 Potassium 3.9 POC Chloride 97 Chloride 96 Carbon Dioxide 25 POC Total CO2 27 Anion Gap 15.0 POC BUN 16 BUN 14 Creatinine 0.7 POC Creatinine 0.7 GFR Calculation 91 Glucose 246 H POC Glucose 246 H Hemoglobin A1c 7.0 H Estim Average Glucose 154 Uric Acid Calcium 9.7 POC WB Ioniz Calcium 1.10 L Phosphorus Magnesium Total Bilirubin 0.3 Direct Bilirubin GGT AST 29 ALT 38 Alkaline Phosphatase 63 Lactate Dehydrogenase Troponin T < 0.01 Total Protein 7.3 Albumin 4.6 Globulin 2.7 Albumin/Globulin Ratio 1.7 Triglycerides Urine Color Urine Appearance Urine pH Ur Specific Sisters Urine Protein Urine Glucose (UA) Urine Ketones Urine Occult Blood Urine Nitrate Urine Bilirubin Urine Urobilinogen Ur Leukocyte Esterase Urine RBC Urine WBC Ur Squamous Epith Cells Ur Transition Epith Cell Urine Bacteria Ur Culture Indicated? 04/12/20 04/12/20 20:15 20:15 WBC 5.6 RBC 4.48 Hgb 12.7 Hct 37.9 POC Hct MCV 84.6 MCH 28.3 MCHC 33.5 RDW 13.0 Plt Count 169 MPV 10.2 Gran % 47.2 Lymph % (Auto) 41.2 Clare % (Auto) 8.0 Eos % (Auto) 2.7 Baso % (Auto) 0.9 Gran # 2.65 Lymph # (Auto) 2.31 Clare # (Auto) 0.45 Eos # (Auto) 0.15 Baso # (Auto) 0.05 Total Counted Seg Neutrophils % Band Neutrophils % Lymphocytes % Monocytes % (Manual) Eosinophils % (Manual) Myelocytes % Platelet Estimate RBC Morphology POC PT 11.4 L POC INR 1.0 APTT 31 POC Sodium Sodium POC Potassium Potassium POC Chloride Chloride Carbon Dioxide POC Total CO2 Anion Gap POC BUN BUN Creatinine POC Creatinine GFR Calculation Glucose POC Glucose Hemoglobin A1c Estim Average Glucose Uric Acid Calcium POC WB Ioniz Calcium Phosphorus Magnesium Total Bilirubin Direct Bilirubin GGT AST ALT Alkaline Phosphatase Lactate Dehydrogenase Troponin T Total Protein Albumin Globulin Albumin/Globulin Ratio Triglycerides Urine Color Urine Appearance Urine pH Ur Specific Sisters Urine Protein Urine Glucose (UA) Urine Ketones Urine Occult Blood Urine Nitrate Urine Bilirubin Urine Urobilinogen Ur Leukocyte Esterase Urine RBC Urine WBC Ur Squamous Epith Cells Ur Transition Epith Cell Urine Bacteria Ur Culture Indicated? Medical - DS: A/P - Patient/Caregiver Discharge Instructions Activity: as per physical therapy Diet: Consistent Carbohydrate Additional Instructions: Follow-up PCP in 5 to 7 days Follow-up with neurology earliest possible appointment Continue aspirin/Plavix for 21 days followed by antiplatelet monotherapy to be decided by neurologist/PCP Continue statin as advised Return to ER if neurological symptoms noted Prescriptions: Aspirin 81 mg CHEWED DAILY #30 tab.chew Transmission Status: Pending to [facility] #[id number] Atorvastatin [Lipitor] 40 mg PO HS #30 tab Transmission Status: Pending to [facility] #[id number] Clopidogrel Bisulfate [Plavix] 75 mg PO DAILY #30 tab Transmission Status: Pending to [facility] #[id number] - Problem Maintenance (1) TIA (transient ischemic attack) Status: Acute - Follow up Plan Follow up with: Zafar Cuellar MD, FAAFP [Primary Care Provider] - Disposition: Home, Self-Care Prognosis: Good Rehab Potential: Fair I certify that the patient requires SNF services: No Overall status at discharge: patient is progressing back to baseline Medical - DS: Qual - VTE Deep Vein Thrombosis/Pulmonary Embolism Present on Admission: No
[2020-04-13] MEDS ORDERED: SENNOSIDES/DOCUSATE SODIUM 1 TAB TABLET PO SCH (21:00)
[2020-04-13] MEDS ORDERED: ATORVASTATIN 20 MG TABLET PO SCH (21:00)
== END 2020-04-13 16:25 | disposition home or self-care (01) ==
LOC: ICU 19:59 → ED 19:59 → ICU 23:06
PROVIDERS: ADMIT Internal Medicine; ATTEND Internal Medicine